=== PATIENT | female | born 1990 | race Caucasian/White ===

== ENCOUNTER 2018-02-21 11:42 | Emergency (ER) | payer SELFPAY ==
[2018-02-21] MEDS ORDERED: HYDROcodone/ACETAMIN 5-325 MG* 1 TAB PO ONE (12:09)
--- NOTE | 2018-02-21 12:14 | ED ---
Upper Extremity Pain - HPI Summary HPI Summary: Patient is a 27-year-old female who presents emergency department for a right wrist injury that occurred 30 minutes prior to arrival. Patient states she tripped outside and landed onto a right outstretched arm. No other injuries were sustained. Patient reports numbness to right upper extremity from elbow to fingertips. Symptoms are [id number] in severity. Moving and touching her makes symptoms worse. Nothing makes symptoms better.Again past medical history. - History of Current Complaint Chief Complaint: EDExtremityUpper Stated Complaint: RT WRIST INJURY Time Seen by Provider: 02/21/18 11:51 Hx Obtained From: Patient - Allergies/Home Medications Allergies/Adverse Reactions: Allergies Allergy/AdvReac Type Severity Reaction Status Date / Time codeine Allergy Severe Headache Verified 02/21/18 11:47 PMH/Surg Hx/FS Hx/Imm Hx Previously Healthy: Yes Infectious Disease History: No Infectious Disease History: Denies: Traveled Outside the [place] in Last 30 Days - Social History Occupation: Unemployed Lives: With Family Review of Systems Positive: Other - pain to right wrist Positive: Paresthesia All Other Systems Reviewed And Are Negative: Yes Physical Exam Triage Information Reviewed: Yes Vital Signs On Initial Exam: Initial Vitals Temp Pulse Resp BP Pulse Ox 99.4 F 130 18 124/79 100 02/21/18 11:44 02/21/18 11:44 02/21/18 11:44 02/21/18 11:44 02/21/18 11:44 Vital Signs Reviewed: Yes Appearance: Positive: Pain Distress - Patient sitting on bed, crying, nontoxic. Family present. Skin: Positive: Warm, Dry Head/Face: Positive: Normal Head/Face Inspection Eyes: Positive: Normal Musculoskeletal: Positive: Other - Significant pain to distal right forearm. Good palpable pedal pulses. Brisk capillary refill. No proximal elbow or shoulder pain. No wounds. Procedures - Splinting Hand-Made Type: orthoglass Splint: sugar-tong Pre-Proc Neuro Vasc Exam: normal Post-Proc Neuro Vasc Exam: normal Diagnostics - Vital Signs Vital Signs Temp Pulse Resp BP Pulse Ox 02/21/18 11:44 99.4 F 130 18 124/79 100 - Laboratory Lab Statement: Any lab studies that have been ordered have been reviewed, and results considered in the medical decision making process. Course/Dx - Course Assessment/Plan: Patient presenting to the ER for an isolated right wrist injury. Patient was given 2 Lortab given her significant pain. X-rays show a nondisplaced fracture of the distal radius, reading per myself and radiology. Sugar tong splint was placed. Pt. advised to call the orthopedic clinic on Friday for an appointment. Advised to ice and elevate. Pt. would like to take tylenol for pain. Was given return precautions. Pt. requested sling. - Diagnoses Provider Diagnoses: Radial fracture Discharge - Sign-Out/Discharge Documenting (check all that apply): Discharge/Admit/Transfer - Discharge Plan Condition: Good Disposition: HOME Patient Education Materials: Wrist Fracture in Adults (ED) Referrals: Remy Miguel MD [Medical Doctor] - No Primary Care Phys,NOPCP [Primary Care Provider] - Additional Instructions: Call Dr. Miguel' office on Friday morning for an appointment Keep splint in place Ice and elevate Tylenol for pain as directed Return to ER if symptoms change or worsen - Billing Disposition and Condition Condition: GOOD Disposition: HOME
--- NOTE | 2018-02-21 12:41 | RAD ---
INDICATION: RIGHT and hand wrist injury sustained in fall. Pain. COMPARISON: None. TECHNIQUE: AP, lateral, and oblique views RIGHT wrist. AP, lateral, and oblique views of the RIGHT hand. REPORT AND IMPRESSION: Nondisplaced transverse fracture through the distal metaphysis of the radius. No additional fracture about the wrist or hand. Normal articular alignment at the wrist and hand. Mild soft tissue swelling most prominent over the volar aspect of the wrist.
[2018-02-21 14:04] VITALS: BP 119/80
== END 2018-02-21 14:03 | disposition home or self-care (01) ==
LOC: ED 11:42
DX: S52.501A Unspecified fracture of the lower end of right radius, initial encounter for closed fracture (principal); W01.0XXA Fall on same level from slipping, tripping and stumbling without subsequent striking against object, initial encounter; Y93.9 Activity, unspecified; Y92.9 Unspecified place or not applicable; Z88.5 Allergy status to narcotic agent
CPT/HCPCS: 99282

== ENCOUNTER 2018-09-21 12:05 | Emergency (ER) | payer SELFPAY ==
[2018-09-21 12:13] VITALS: BP 117/70
--- NOTE | 2018-09-21 12:30 | UC ---
Respiratory Complaint HPI - HPI Summary HPI Summary: 28 yo female presents with a dry cough and nasal discharge since yesterday. She has not taken anything OTC. She is currently 32 weeks . Baby is active and she has had no issues this . She denies fever, chills, SOB, chest pain, abdominal pain, n/v, or vaginal bleeding. - History of Current Complaint Chief Complaint: UCRespiratory Stated Complaint: URI Time Seen by Provider: 09/21/18 12:29 Onset/Duration: Sudden Onset Severity Initially: Moderate Severity Currently: Moderate Pain Intensity: 7 Pain Scale Used: 0-10 Numeric Character: Cough: Nonproductive - Allergies/Home Medications Allergies/Adverse Reactions: Allergies Allergy/AdvReac Type Severity Reaction Status Date / Time codeine Allergy Severe Headache Verified 09/21/18 12:13 Home Medications: Home Medications NK [No Home Medications Reported] 09/21/18 [History Confirmed 09/21/18] PMH/Surg Hx/FS Hx/Imm Hx - Additional Past Medical History Additional PMH: None - Surgical History Surgical History: None Surgery Procedure, Year, and Place: c section x2 - Family History Known Family History: Positive: None - Social History Occupation: Employed Full-time Lives: With Family Alcohol Use: Rare Substance Use Type: None Smoking Status (MU): Heavy Every Day Tobacco Smoker Type: Cigarettes Review of Systems All Other Systems Reviewed And Are Negative: Yes Constitutional: Positive: Negative Skin: Positive: Negative Eyes: Positive: Negative ENT: Positive: Nasal Discharge Respiratory: Positive: Cough Cardiovascular: Positive: Negative Gastrointestinal: Positive: Negative Neurovascular: Positive: Negative Neurological: Positive: Negative Psychological: Positive: Negative Physical Exam - Summary Physical Exam Summary: GENERAL: NAD. WDWN. No pain distress. SKIN: No rashes, sores, lesions, or open wounds. HEENT: Head: AT/NC Eyes: EOM intact. Conjunctiva clear without inflammation or discharge. Ears: Hearing grossly normal. TMs intact, no bulging, erythema, or edema. Nose: Nasal mucosa pink and moist. NTTP maxillary and frontal sinus. Throat: Posterior oropharynx without exudates, erythema, or tonsillar enlargement. Uvula midline. NECK: Supple. Nontender. No lymphadenopathy. CHEST: CTAB. No r/r/w. No accessory muscle use. Breathing comfortably and in no distress. CV: RRR. Without m/r/g. Pulses intact. Cap refill <2seconds NEURO: Alert. PSYCH: Age appropriate behavior. Triage Information Reviewed: Yes Vital Signs: Initial Vital Signs Temp 98.3 F 09/21/18 12:09 Pulse 120 09/21/18 12:09 Resp 18 09/21/18 12:09 BP 117/70 09/21/18 12:09 Pulse Ox 100 09/21/18 12:09 Vital Signs Reviewed: Yes UC Diagnostic Evaluation - Laboratory O2 Sat by Pulse Oximetry: 100 Respiratory Course/Dx - Course Course Of Treatment: Her exam is WNL and she is afebrile at this time. I suspect she has a viral illness. She is doing a bit of coughing through the exam , unfortunately given her - options are limited for treatment. I am hesistant to precsribe any category C medications to her during her pregnany. Therefore, I advised her to please call her OBGYN to schedule a f/u appointment for a recheck and to ask if there is anything they are comfortable prescribing for her cough. - Differential Dx/Diagnosis Provider Diagnosis: Viral URI with cough Discharge - Sign-Out/Discharge Documenting (check all that apply): Patient Departure All imaging exams completed and their final reports reviewed: No Studies - Discharge Plan Condition: Stable Disposition: HOME Patient Education Materials: Viral Syndrome (ED), Acute Cough (ED) Forms: *Work Release Referrals: No Primary Care Phys,NOPCP [Primary Care Provider] - Additional Instructions: If you develop a fever, shortness of breath, chest pain, new or worsening symptoms - please call your PCP or go to the ED. I suspect your symptoms are viral and will improve with time and rest. 1) Please call your OBGYN to ask about cough medicines you may be able to take - Billing Disposition and Condition Condition: STABLE Disposition: Home
== END 2018-09-21 12:48 | disposition home or self-care (01) ==
LOC: UCEAST 12:05
DX: J02.9 Acute pharyngitis, unspecified (principal); R05 Cough; Z88.5 Allergy status to narcotic agent; F17.210 Nicotine dependence, cigarettes, uncomplicated
CPT/HCPCS: 99211; G0463

== ENCOUNTER 2018-09-23 00:07 | Emergency (ER) | payer SELFPAY ==
[2018-09-23] MEDS ORDERED: Albuterol 0.5% CONC NEB.SOL* 5 MG/ML 20 ml BOT INH ONE (00:37)
[2018-09-23] MEDS ORDERED: predniSONE TAB* 20 MG PO ONE (00:38)
--- NOTE | 2018-09-23 01:09 | ED ---
Complex/Multi-Sys Presentation - HPI Summary HPI Summary: A 28 y/o female accompanied by a friend presents to the ED c/o terrible cough for the couple days reaching 8/10 in severity. Additionally, she has been experiencing SOB and chest pain coupled with abdominal pain radiating to her back. As per triage, "Patient reports cough and congestion. Seen by Urgent Care for same 2 days ago. Patient is 32 weeks ". According to the patient, she has been experiencing a dry, non-productive cough for the past couple days. Her cough is so severe that she has to vomit. Additionally, she has been experiencing chest pain and SOB. She feels as if she is out of breath and like "an elephant is on her chest". She also noted that she has abdominal pain radiating to her back. She denies any fever or chills. Patient is 32-weeks . No PMHx of asthma. SHx of half-pack of cigarettes per day. - History Of Current Complaint Chief Complaint: EDGeneral Time Seen by Provider: 09/23/18 00:18 Hx Obtained From: Patient Onset/Duration: Sudden Onset, Lasting Days, Still Present, Worse Since Timing: Constant Severity Currently: Severe - 8/10 Location: Negative Aggravating Factor(s): NOTHING Alleviating Factor(s): NOTHING Associated Signs And Symptoms: Positive: SOB, Cough, Chest Pain, Vomiting, Back Pain. Negative: Fever - Allergies/Home Medications Allergies/Adverse Reactions: Allergies Allergy/AdvReac Type Severity Reaction Status Date / Time codeine Allergy Severe Headache Verified 09/21/18 12:13 PMH/Surg Hx/FS Hx/Imm Hx Endocrine/Hematology History: Denies: Hx Diabetes, Hx Thyroid Disease Cardiovascular History: Denies: Hx Hypertension Respiratory History: Denies: Hx Asthma, Hx Chronic Obstructive Pulmonary Disease (COPD) GI History: Denies: Hx Ulcer - Surgical History Surgery Procedure, Year, and Place: c section x2 Infectious Disease History: No Infectious Disease History: Denies: Hx Hepatitis, Hx Human Immunodeficiency Virus (HIV), Traveled Outside the [place] in Last 30 Days - Family History Known Family History: Negative: Hypertension - Social History Alcohol Use: Rare Substance Use Type: Reports: None Smoking Status (MU): Heavy Every Day Tobacco Smoker Type: Cigarettes Review of Systems Negative: Fever, Chills Positive: Chest Pain Positive: Shortness Of Breath, Cough Positive: Abdominal Pain, Vomiting Positive: Other - POSITIVE: BACK PAIN All Other Systems Reviewed And Are Negative: Yes Physical Exam - Summary Physical Exam Summary: Appearance: Well-appearing, Well-nourished, lying in bed comfortably Skin: Warm, dry, no obvious rash Eyes: sclera anicteric, no conjunctival pallor ENT: mucous membranes moist, pharynx appears normal Neck: Supple, nontender Respiratory: Appears to be in mild respiratory distress. Slightly labored breathing. Dekeptnic. Diminished breath sounds. Diffuse expiratory wheezing upon forced expiration. No signs of consolidation. Cardiovascular: Normal S1, S2. No murmurs. Normal distal pulses in tibial and radial bilaterally. Abdomen: Soft, nontender, normal active bowel sounds present Musculoskeletal: Normal, Strength/ROM Intact Neurological: A&Ox3, awake and alert, mentation is normal, speech is fluent and appropriate Psychiatric: affect is normal, does not appear anxious or depressed Triage Information Reviewed: Yes Vital Signs On Initial Exam: Initial Vitals Temp Pulse Resp BP Pulse Ox 98 F 124 22 127/81 99 09/23/18 00:10 09/23/18 00:10 09/23/18 00:10 09/23/18 00:10 09/23/18 00:10 Vital Signs Reviewed: Yes Diagnostics - Vital Signs Vital Signs Temp Pulse Resp BP Pulse Ox 09/23/18 00:10 98 F 124 22 127/81 99 - Laboratory Lab Statement: Any lab studies that have been ordered have been reviewed, and results considered in the medical decision making process. Re-Evaluation - Re-Evaluation First Eval Re-Evaluation Time: 01:20 Change: Improved Comment: PATIENT FEELS MUCH BETTER. Complex Multi-Symp Course/Dx Course Of Treatment: A 28 y/o female accompanied by a friend presents to the ED c/o terrible cough for the couple days reaching 8/10 in severity. Additionally, she has been experiencing SOB and chest pain coupled with abdominal pain radiating to her back. According to the patient, she has been experiencing a dry , non-productive cough for the past couple days. Her cough is so severe that she has to vomit. Additionally, she has been experiencing chest pain and SOB. She feels as if she is out of breath and like "an elephant is on her chest". She also noted that she has abdominal pain radiating to her back. She denies any fever or chills. Patient is 32-weeks . No PMHx of asthma. SHx of half-pack of cigarettes per day. Physical exam revealed appears to be in mild respiratory distress. Slightly labored breathing. Dekeptnic. Diminished breath sounds. Diffuse expiratory wheezing upon forced expiration. No signs of consolidation. No laboratory scans were done. No blood work was done. In the ED course, the patient received Albuterol and Deltasone. During reevaluation, the patient indicated that she was feeling better after treatment. Patient will be discharged with a diagnosis of Bronchiolitis. Patient is to follow up with PCP in 2-3 days. Patient is agreeable with this plan. - Diagnoses Provider Diagnoses: Bronchiolitis Discharge - Sign-Out/Discharge Documenting (check all that apply): Patient Departure - DISCHARGE - Discharge Plan Condition: Improved Disposition: HOME Prescriptions: Albuterol HFA INHALER* [Ventolin HFA Inhaler*] 2 puff INH Q4H PRN #1 mdi PRN Reason: Dyspnea predniSONE TAB* [Deltasone 20 MG TAB*] 40 mg PO DAILY 5 Days #10 tab Patient Education Materials: Bronchiolitis (ED) Forms: *Work Release Referrals: No Primary Care Phys,NOPCP [Primary Care Provider] - - Billing Disposition and Condition Condition: IMPROVED Disposition: Home - Attestation Statements Document Initiated by Thais: Yes Documenting Cristinaibe: Aleks Hardy Provider For Whom Thais is Documenting (Include Credential): MD Cristina Martinezibshiva Attestation: Aleks Spears scribed for Vahid Borrego MD on 09/23/18 at 0222. Scribe Documentation Reviewed: Yes Provider Attestation: The documentation as recorded by the Aleks antonio accurately reflects the service I personally performed and the decisions made by me, Vahid Borrego MD Status of Scribshiva Document: Viewed
[2018-09-23 01:30] VITALS: BP 129/91
== END 2018-09-23 01:29 | disposition home or self-care (01) ==
LOC: ED 00:07
DX: O26.893 Other specified pregnancy related conditions, third trimester (principal); J21.9 Acute bronchiolitis, unspecified; O99.333 Smoking (tobacco) complicating pregnancy, third trimester; Z3A.32 32 weeks gestation of pregnancy; Z88.5 Allergy status to narcotic agent
CPT/HCPCS: 99281; J7512

== ENCOUNTER 2018-09-29 21:22 | Emergency (ER) | payer SELFPAY ==
[2018-09-29 21:39] VITALS: BP 133/74
== END 2018-09-29 23:25 | disposition left against medical advice (07) ==
LOC: ED 21:22
DX: R07.81 Pleurodynia (principal); Z53.21 Procedure and treatment not carried out due to patient leaving prior to being seen by health care provider

== ENCOUNTER 2019-09-17 15:25 | Emergency (ER) | payer OTHER ==
--- NOTE | 2019-09-17 15:49 | ED ---
Abdominal Pain/Female - HPI Summary HPI Summary: 29 female presents to the ED by EMS with a chief complaint of abdominal pain starting after lunch time today. Patient was normal all morning. She ate a sandwich and then started having pain around her stomach that radiates to her back. Patient vomited 3 times this afternoon. Pt denies any fever, chills, erythema of eyes, sore throat, CP, SOB, cough, melena, dysuria, hematuria, myalgia, edema, rash, or dizziness. History of . Smokes tobacco. PMHx kidney infection. No Hx ulcer. Ended period today. - History of Current Complaint Stated Complaint: ABDOMINAL PAIN PER EMS Time Seen by Provider: 09/17/19 15:30 Hx Obtained From: Patient Onset/Duration: Sudden Onset, Lasting Hours Timing: Hours Severity Initially: Moderate Severity Currently: Moderate Location: Epigastric Radiates: Yes Radiates to: Back Character: Sharp Aggravating Factor(s): Food Alleviating Factor(s): Nothing Associated Signs and Symptoms: Positive: Nausea, Vomiting, Diarrhea Allergies/Adverse Reactions: Allergies Allergy/AdvReac Type Severity Reaction Status Date / Time codeine Allergy Severe Headache Verified 09/29/18 21:39 PMH/Surg Hx/FS Hx/Imm Hx Endocrine/Hematology History: Denies: Hx Diabetes, Hx Thyroid Disease Cardiovascular History: Denies: Hx Hypertension Respiratory History: Denies: Hx Asthma, Hx Chronic Obstructive Pulmonary Disease (COPD) GI History: Denies: Hx Ulcer Psychiatric History: Reports: Hx Depression - no medication - Surgical History Surgery Procedure, Year, and Place: c section x2 Infectious Disease History: Denies: Hx Hepatitis, Hx Human Immunodeficiency Virus (HIV) - Family History Known Family History: Positive: None Negative: Hypertension - Social History Alcohol Use: None Substance Use Type: Reports: None Smoking Status (MU): Heavy Every Day Tobacco Smoker Type: Cigarettes Review of Systems Negative: Fever, Chills Negative: Erythema Negative: Sore Throat Negative: Chest Pain Negative: Shortness Of Breath, Cough Positive: Abdominal Pain, Vomiting, Nausea Negative: dysuria, hematuria Negative: Myalgia, Edema Negative: Rash Neurological: Negative - neg - dizziness All Other Systems Reviewed And Are Negative: Yes Physical Exam - Summary Physical Exam Summary: Constitutional: Well-developed, Well-nourished, Alert. Mildly Distressed Skin: Warm, Dry HENT: Normocephalic; Atraumatic Eyes: Conjunctiva normal Neck: Musculoskeletal ROM normal neck. (-) JVD, (-) Stridor, (-) Tracheal deviation Cardio: Rhythm regular, rate normal, Heart sounds normal; Intact distal pulses; Radial pulses are 2+ and symmetric. (-) Murmur Pulmonary/Chest wall: Effort normal. (-) Respiratory distress, (-) Wheezes, (-) Rales Abd: Soft, (-) Distension, (-) Guarding, (-) Rebound. RLQ, Right CVA, and RUQ tenderness. Musculoskeletal: (-) Edema Lymph: (-) Cervical adenopathy Neuro: Alert, Oriented x3 Psych: Mood and affect Normal Triage Information Reviewed: Yes Vital Signs Reviewed: Yes Procedures - Sedation Patient Received Moderate/Deep Sedation with Procedure: No Diagnostics - Laboratory Result Diagrams: 09/17/19 16:48 09/17/19 16:48 Lab Statement: Any lab studies that have been ordered have been reviewed, and results considered in the medical decision making process. - Radiology CXR Radiology Interpretation Completed By: Radiologist Summary of Radiographic Findings: 1. NO EVIDENCE FOR ACTIVE CARDIOPULMONARY DISEASE. 2. NO FREE INTRAPERITONEAL AIR IS SEEN. THE STOMACH IS DILATED WITH AN AIR-FLUID LEVEL. An ED physician has reviewed this report. - Ultrasound Transvaginal US Ultrasound Interpretation Completed By: Radiologist Summary of Ultrasound Findings: Tansvaginal exam returned negative for ovarian torsion. An ED physician has reviewed this report. Re-Evaluation - Re-Evaluation First Eval Re-Evaluation Time: 18:00 Change: Improved Comment: She is more comfortable. Pain is localized to just the RUQ. Abdominal Pain Fem Course/Dx - Course Course Of Treatment: 29 female presents to the ED by EMS with a chief complaint of abdominal pain starting after lunch time today. Patient was normal all morning. She ate a sandwich and then started having pain around her stomach that radiates to her back. Patient vomited 3 times this afternoon. Pt denies any fever, chills, erythema of eyes, sore throat, CP, SOB, cough, melena, dysuria, hematuria, myalgia, edema, rash, or dizziness. History of . Smokes tobacco. PMHx kidney infection. No Hx ulcer. Ended period today. Upon physical exam, patient has RLQ, right CVA, and RUQ tenderness. Mild distress while lying flat on stretcher. Chest XR shows: 1. NO EVIDENCE FOR ACTIVE CARDIOPULMONARY DISEASE. 2. NO FREE INTRAPERITONEAL AIR IS SEEN. THE STOMACH IS DILATED WITH AN AIR-FLUID LEVEL. Tansvaginal exam returned negative for ovarian torsion. Lab results show: RBC 3.63, HGB 10.8, HCT 32, Potassium 3.3, BUN/creatinine ratio 7.5, glucose 126, and AST 84. Diagnosis is abdominal pain. Patient is a signout to Dr. Darling at change of shifts at 1900, pending US and CT ABD/PEL results. - Diagnoses Provider Diagnoses: Abdominal pain Discharge ED - Sign-Out/Discharge Documenting (check all that apply): Sign-Out Patient Signing out patient TO: Bianca Darling - Signout at change of shifts to Dr. Darling at 1900 on 09/17/19. - Discharge Plan Condition: Stable Referrals: No Primary Care Phys,NOPCP [Medical Doctor] - - Attestation Statements Document Initiated by Scribe: Yes Documenting Scribe: José Miguel Henry Provider For Whom Scribe is Documenting (Include Credential): Wil Ta MD Scribe Attestation: I, José Miguel Templeton and Ten Henry, scribed for Wil Ta MD on at 2005.
[2019-09-17] MEDS ORDERED: NS 0.9% 1000 ML** 1,000 ML IV ONE (15:50)
[2019-09-17] MEDS ORDERED: Morphine 4 MG/ML VIAL (1 ml) 4 MG/ML VIAL IV ONE (15:51)
[2019-09-17] MEDS ORDERED: Ondansetron INJ* 2 MG/ML VIAL IV ONE (15:51)
[2019-09-17 16:34] LABS: Urine Appearance Clear; Urine Bilirubin Negative (Negative); Urine Blood Negative (Negative); Urine Color Yellow; Urine Glucose Negative (Negative); Urine Ketones Negative (Negative); Urine Nitrite Negative (Negative); Urine Protein Negative (Negative); Urine Specific Gravity 1.015 (1.010-1.030); Urine Urobilinogen Negative (Negative)
[2019-09-17 17:04] LABS: ABS Lymphocytes 1.2 10^3/ul (1.0-4.8); ABS Monocytes 0.5 10^3/ul (0-0.8); ABS Neutrophils 7.5 10^3/ul (1.5-7.7); Eosinophil % 0.3 %; Hematocrit 32 % (35-47); Hemoglobin 10.8 g/dL (12.0-16.0); Lymphocyte % 12.5 %; Mean Corpuscular HGB Conc 34 g/dL (31-36); Mean Corpuscular Hemoglobin 30 pg (27-31); Mean Corpuscular Volume 88 fL (80-97); Mean Platelet Volume 9.2 fL (7.4-10.4); Platelet Count 212 10^3/uL (150-450); Red Blood Count 3.63 10^6 /uL (3.70-4.87); Red Cell Distribution Width 16 % (10-15); White Blood Count 9.2 10^3/uL (3.5-10.8)
[2019-09-17 17:23] LABS: ALT 40 U/L (7-52); AST 84 U/L (13-39); Albumin 4.2 g/dL (3.2-5.2); Albumin/Globulin Ratio 1.9 (1-3); Alkaline Phosphatase 45 U/L (34-104); Anion Gap 5 mmol/L (2-11); BUN/Creatinine Ratio 7.5 (8-20); Blood Urea Nitrogen 6 mg/dL (6-24); C Reactive Protein 1.54 mg/L (<8.01); CO2 Carbon Dioxide 25 mmol/L (22-32); Calcium 8.8 mg/dL (8.6-10.3); Chloride 111 mmol/L (101-111); EGFR African American 104.1 (>60); Globulin 2.2 g/dL (2-4); Glucose 126 mg/dL (70-100); Potassium 3.3 mmol/L (3.5-5.0); Sodium 141 mmol/L (135-145); Total Protein 6.4 g/dL (6.4-8.9)
[2019-09-17 17:29] LABS: HCG Pregnancy < 0.60 mIU/mL
[2019-09-17] MEDS ORDERED: Iohexol 300* (CONTRAST) 10 ML SDV IV ONE (18:19)
--- NOTE | 2019-09-17 19:29 | ED ---
Progress - Progress Note Progress Note: Patient is received as a sign-out from Dr. Ta to Dr. Darling at [address] ABD/PEL and Gallbladder US. CT ABD/PEL IMPRESSION: 1. CT findings suggestive of cholecystitis. 2. No CT findings of appendicitis. THIS REPORT WAS REVIEWED BY DR. DARLING GALLBLADDER US IMPRESSION: Cholelithiasis with ultrasound findings of cholecystitis. THIS REPORT WAS REVIEWED BY DR. DARLING 2023 - Patient's case was discussed with Dr. Cobb, surgery. Zosyn to be given, Dr. Cobb will come to ED to evaluate. 2129 - Patient wants to leave AMA. Extensive discussion was held with patient regarding the risks of AMA, including significant disability and possibly . The patient understands these risks but still wishes to leave AMA. She is alert and oriented x3. Patient signed AMA papers and left ED. - EKG/XRAY/CT CT: see above Re-Evaluation - Re-Evaluation First Eval Re-Evaluation Time: 20:32 Comment: Imaging was discussed with the patient. Pending surgery evaluation. Second Eval Re-Evaluation Time: 21:30 Comment: 2129 - Patient wants to leave AMA. Extensive discussion was held with patient regarding the risks of AMA, including significant disability and possibly . The patient understands these risks but still wishes to leave AMA. She is alert and oriented x3. Patient signed AMA papers and left ED. Course/Dx - Course Course Of Treatment: During ED course, patient received piperacillin sod/ tazobactam sod 3.375 gm in sodium chloride, 100 mls @ 200 mls/hr IVPB. - Diagnoses Provider Diagnoses: Acute cholecystitis - Provider Notifications Discussed Care Of Patient With: Sharri Cobb Time Discussed With Above Provider: 20:24 Instructed by Provider To: Other - Patient's case was discussed with Dr. Cobb, patient will be started on Zosyn and Dr. Cobb will come to ED to evaluate the patient. Discharge ED - Sign-Out/Discharge Documenting (check all that apply): Patient Departure - AMA - Discharge Plan Condition: Fair Disposition: AGAINST MEDICAL ADVICE Patient Education Materials: Cholecystitis (ED) Referrals: No Primary Care Phys,NOPCP [Medical Doctor] - Additional Instructions: rest - Billing Disposition and Condition Condition: FAIR Disposition: Against Medical Advice - Attestation Statements Document Initiated by Scribe: Yes Documenting Scribe: DENISE FLORIAN Provider For Whom Scribe is Documenting (Include Credential): KEVON DARLING MD Scribe Attestation: I, DENISE FLORIAN, scribed for KEVON DARLING MD on 09/18/19 at 0207. Scribe Documentation Reviewed: Yes Provider Attestation: The documentation as recorded by the ariannaibDNEISE shannon accurately reflects the service I personally performed and the decisions made by me, KEVON DARLING MD Status of Scribe Document: Viewed
[2019-09-17] MEDS ORDERED: Piperacillin/Tazobac ADVAN(*) 3.375 GM in NS 0.9% 100 ML* 100 ML IVPB ONE (20:25)
[2019-09-17] MEDS ORDERED: Albuterol HFA INHALER* 8 gm MDI INH PRN (21:33)
[2019-09-17 21:57] VITALS: BP 120/80
== END 2019-09-17 22:02 | disposition left against medical advice (07) ==
LOC: ED 15:25
DX: K81.0 Acute cholecystitis (principal); F17.210 Nicotine dependence, cigarettes, uncomplicated; Z88.5 Allergy status to narcotic agent
CPT/HCPCS: 36415; 71045; 74177; 76705; 76830; 80053; 81003; 83605; 83690; 84702; 85025; 86140; 96361; 96365; 96375; 99283; J2270; J2405; J2543; Q9967

== ENCOUNTER 2019-09-19 09:42 | Observation (INO) | payer OTHER ==
[2019-09-19] MEDS ORDERED: NS 0.9% 1000 ML** 1,000 ML IV ONE (10:32)
[2019-09-19] MEDS ORDERED: Ketorolac INJ* 30 MG/ML 1 ML VIAL IV ONE (10:32)
--- NOTE | 2019-09-19 10:38 | ED ---
Abdominal Pain/Female - HPI Summary HPI Summary: Pt is a 29 y/o F presenting to the ED with a chief complaint of RUQ abd pain. She came to the ED a couple of days ago where she was told she needed to consult with the surgeon, but she left AMA. The pain initially came on the other day after she ate a sandwich, and it subsided for a while after she left but returned this morning. She states it comes on all over her abd but mostly in her RUQ. She is unsure if shes had a fever, but reports chills, nausea, one episode of emesis, and diarrhea. She denies dysuria and hematuria. - History of Current Complaint Chief Complaint: EDAbdPain Stated Complaint: ABD PAIN PER PT Time Seen by Provider: 09/19/19 10:24 Hx Obtained From: Patient Onset/Duration: Sudden Onset, Lasting Days, Still Present Timing: Days Severity Initially: Moderate Severity Currently: Moderate Pain Intensity: 6 Pain Scale Used: 0-10 Numeric Location: Discrete At: RUQ, Epigastric Aggravating Factor(s): Nothing Alleviating Factor(s): Nothing Associated Signs and Symptoms: Positive: Nausea, Vomiting, Diarrhea. Negative: Fever, Urinary Symptoms Allergies/Adverse Reactions: Allergies Allergy/AdvReac Type Severity Reaction Status Date / Time codeine Allergy Severe Headache Verified 09/19/19 09:49 Home Medications: Home Medications Citalopram TAB* [Celexa TAB*] 20 mg PO DAILY 09/19/19 [History Confirmed ] PMH/Surg Hx/FS Hx/Imm Hx Previously Healthy: Yes Endocrine/Hematology History: Denies: Hx Diabetes, Hx Thyroid Disease Cardiovascular History: Denies: Hx Hypertension Respiratory History: Denies: Hx Asthma, Hx Chronic Obstructive Pulmonary Disease (COPD) GI History: Denies: Hx Ulcer Psychiatric History: Reports: Hx Depression - no medication - Surgical History Surgery Procedure, Year, and Place: c section x2 Infectious Disease History: No Infectious Disease History: Denies: Hx Hepatitis, Hx Human Immunodeficiency Virus (HIV), Traveled Outside the [place] in Last 30 Days - Family History Known Family History: Negative: Hypertension - Social History Alcohol Use: None Hx Substance Use: No Substance Use Type: Reports: None Hx Tobacco Use: Yes Smoking Status (MU): Heavy Every Day Tobacco Smoker Type: Cigarettes Review of Systems Positive: Chills. Negative: Fever Positive: Abdominal Pain, Vomiting, Diarrhea, Nausea Negative: dysuria, hematuria All Other Systems Reviewed And Are Negative: Yes Physical Exam - Summary Physical Exam Summary: Constitutional: Well-developed, Well-nourished, Alert. (-) Distressed Skin: Warm, Dry HENT: Normocephalic; Atraumatic Eyes: Conjunctiva normal Neck: Musculoskeletal ROM normal neck. (-) JVD, (-) Stridor, (-) Tracheal deviation Cardio: Rhythm regular, rate normal, Heart sounds normal; Intact distal pulses; Radial pulses are 2+ and symmetric. (-) Murmur Pulmonary/Chest wall: Effort normal. (-) Respiratory distress, (-) Wheezes, (-) Rales Abd: Mid-epigastric and RUQ tenderness, positive Sycamore sign, (-) Distension, (-) Guarding, (-) Rebound Musculoskeletal: (-) Edema Lymph: (-) Cervical adenopathy Neuro: Alert, Oriented x3 Psych: Mood and affect Normal Triage Information Reviewed: Yes Vital Signs On Initial Exam: Initial Vitals Temp Pulse Resp BP Pulse Ox 98.1 F 69 16 154/96 100 09/19/19 09:46 09/19/19 09:46 09/19/19 09:46 09/19/19 09:46 09/19/19 09:46 Vital Signs Reviewed: Yes Procedures - Sedation Patient Received Moderate/Deep Sedation with Procedure: No Diagnostics - Vital Signs Vital Signs Temp Pulse Resp BP Pulse Ox 09/19/19 09:46 98.1 F 69 16 154/96 100 - Laboratory Result Diagrams: 09/19/19 10:38 09/19/19 10:38 Lab Statement: Any lab studies that have been ordered have been reviewed, and results considered in the medical decision making process. - Ultrasound Gallbladder US Ultrasound Interpretation Completed By: Radiologist Summary of Ultrasound Findings: Gallstones with gallbladder wall thickening and pericholecystic fluid. ED physician has reviewed this report. Abdominal Pain Fem Course/Dx - Course Course Of Treatment: Patient is here with pain in her right upper quadrant. Patient was evaluated on Friday night where she was diagnosed with cholecystitis. Patient left AMA after receiving a dose of IV Zosyn. Patient returns today with continued abdominal pain. Patient had repeat ultrasound showed pericholecystic fluid, thickened gallbladder wall consistent with cholecystitis. Patient was given IV Zosyn by myself. Patient is admitted to the hospital by the surgery team. - Diagnoses Provider Diagnoses: Acute cholecystitis Discharge ED - Sign-Out/Discharge Documenting (check all that apply): Patient Departure - Discharge Plan Condition: Stable Disposition: ADMITTED TO [facility] - Billing Disposition and Condition Condition: STABLE Disposition: Admitted to [facility] - Attestation Statements Document Initiated by Thais: Yes Documenting Scribe: Vijaya Agee Provider For Whom Thais is Documenting (Include Credential): Tremaine Cuevas MD. Scribe Attestation: Vijaya Spears, scribed for Tremaine Cuevas MD. on 09/19/19 at 1737. Scribe Documentation Reviewed: Yes Provider Attestation: The documentation as recorded by the Vijaya antonio accurately reflects the service I personally performed and the decisions made by me, Tremaine Cuevas MD. Status of Scribe Document: Viewed Consult Consult: 1877 - I spoke with Dr. Cobb who will be coming to see the pt in the ED. 3063 - Dr. Cobb will take the pt to the OR.
[2019-09-19 10:46] LABS: ABS Monocytes 0.3 10^3/ul (0-0.8); ABS Neutrophils 1.9 10^3/ul (1.5-7.7); Hematocrit 31 % (35-47); Hemoglobin 10.2 g/dL (12.0-16.0); Lymphocyte % 46.2 %; Mean Corpuscular HGB Conc 33 g/dL (31-36); Mean Corpuscular Hemoglobin 29 pg (27-31); Mean Corpuscular Volume 89 fL (80-97); Mean Platelet Volume 9.2 fL (7.4-10.4); Platelet Count 211 10^3/uL (150-450); Red Cell Distribution Width 16 % (10-15); White Blood Count 4.2 10^3/uL (3.5-10.8)
[2019-09-19 11:01] LABS: Albumin 3.9 g/dL (3.2-5.2); Anion Gap 4 mmol/L (2-11); CO2 Carbon Dioxide 24 mmol/L (22-32); Calcium 8.7 mg/dL (8.6-10.3); Chloride 109 mmol/L (101-111); Potassium 3.2 mmol/L (3.5-5.0); Sodium 137 mmol/L (135-145)
[2019-09-19 11:07] LABS: ALT 88 U/L (7-52); AST 64 U/L (13-39); Albumin/Globulin Ratio 1.9 (1-3); Alkaline Phosphatase 47 U/L (34-104); BUN/Creatinine Ratio 4.9 (8-20); Blood Urea Nitrogen 4 mg/dL (6-24); EGFR African American 101.2 (>60); EGFR Non-African American 83.6 (>60); Globulin 2.1 g/dL (2-4); Glucose 111 mg/dL (70-100)
[2019-09-19 11:13] LABS: HCG Pregnancy < 0.60 mIU/mL
[2019-09-19] MEDS ORDERED: Piperacillin/Tazobac ADVAN(*) 3.375 GM in NS 0.9% 100 ML* 100 ML IVPB ONE (11:32)
[2019-09-19] MEDS ORDERED: Morphine 4 MG/ML VIAL (1 ml) 4 MG/ML VIAL IV ONE (11:35)
[2019-09-19] MEDS ORDERED: Docusate CAP* 100 MG PO PRN (13:11)
[2019-09-19] MEDS ORDERED: oxyCODONE/Acetamin 5/325 MG* TAB PO PRN (13:11)
[2019-09-19] MEDS ORDERED: Acetaminophen TAB* 325 MG PO PRN (13:11)
[2019-09-19] MEDS ORDERED: Potassium Chlor TAB* 20 MEQ TAB.ER PO ONE (13:19)
[2019-09-19] MEDS: Nicotine PATCH 7 MG/24 HR* PATCH TRANSDERM SCH (13:34)
--- NOTE | 2019-09-19 14:42 | HP ---
H&P (Free Text) History and Physical: DATE OF ADMISSION: 09/19/19 REASON FOR ADMISSION: Acute cholecystitis HPI: Ms Cabrera is a 29 year old woman previously healthy who presented to the ED with abdominal pain. On 09/17, she started having abdominal discomfort after eating a bologna and cheese sandwich. The pain started to worsen to the point where she couldn't stand or move. She also had nausea, vomiting, and diarrhea. She actually came to the ED that evening where CT scan was remarkable for pericholecystic fluid and wall enchancement. US showed thickened gallbladder wall at 5 mm and pericholecystic fluid. Her WBC was normal. She left AMA at that time before evaluation by surgery. She reports that she had abdominal pain yesterday but it was tolerable. She was tolerating a regular diet. This morning at about 6 AM she had worsening pain and returned to the ED. She reports subjective fevers on 09/17, but denies fevers/chills since then. PAST MEDICAL HISTORY: None PAST SURGICAL HISTORY: C sections x3. MEDICATIONS: None ALLERGIES: codeine Allergy (Severe, Verified 09/19/19 09:49) Headache FAMILY HISTORY: Mother and sister are healthy. Her father from liver failure 2/2 alcohol in the early . SOCIAL HISTORY: Patient lives with her 3 kids. She works department mgr in housekeeping. She smokes about 1/3 ppd since age 19. Denies alcohol or recreational drug use. ROS: A 14-point review of systems was obtained and pertinent findings are in HPI. PHYSICAL EXAM: Temp Pulse Resp BP Pulse Ox 97.4 F 57 20 114/76 100 09/19/19 14:41 09/19/19 14:41 09/19/19 14:41 09/19/19 14:41 09/19/19 14:41 General: No acute distress. Lying comfortable in bed. Head: Normocephalic and atraumatic Eyes: EOMI Mouth: Moist mucous membranes Neck: Trachea midline CV: Regular rate and rhythm, mild bradycardia in 50s. Chest: Clear to auscultation bilaterally Abdomen: Soft, nondistended. Tender to palpation in RUQ. No rebound or guarding. Skin: Intact, no lesions or rash Extremities: Warm, no pedal edema. Neuro: Alert and oriented x3 Laboratory Results - last 24 hr 09/19/19 09/19/19 10:38 10:38 WBC 4.2 RBC 3.50 L Hgb 10.2 L Hct 31 L MCV 89 MCH 29 MCHC 33 RDW 16 H Plt Count 211 MPV 9.2 Neut % (Auto) 44.9 Lymph % (Auto) 46.2 Ward % (Auto) 7.2 Eos % (Auto) 1.0 Baso % (Auto) 0.7 Absolute Neuts (auto) 1.9 Absolute Lymphs (auto) 2.0 Absolute Monos (auto) 0.3 Absolute Eos (auto) 0.0 Absolute Basos (auto) 0.0 Absolute Nucleated RBC 0.0 Nucleated RBC % 0.0 Sodium 137 Potassium 3.2 L Chloride 109 Carbon Dioxide 24 Anion Gap 4 BUN 4 L Creatinine 0.82 Est GFR ( Amer) 101.2 Est GFR (Non-Af Amer) 83.6 BUN/Creatinine Ratio 4.9 L Glucose 111 H Calcium 8.7 Total Bilirubin 0.40 AST 64 H ALT 88 H Alkaline Phosphatase 47 Total Protein 6.0 L Albumin 3.9 Globulin 2.1 Albumin/Globulin Ratio 1.9 Lipase 14 Beta HCG, Quant < 0.60 Diagnostics Summary of Ultrasound Findings Gallstones with gallbladder wall thickening and [Gallbladder US] pericholecystic fluid. ED physician has reviewed this report. ASSESSMENT AND PLAN: 29F with acute cholecystitis. -Will admit patient and plan for laparoscopic cholecystectomy tomorrow 09/20. -Received 1 dose of Zosyn in ED. Will continue Zosyn. -Pain control: Percocet prn, morphine prn -Will order low fat diet for today and NPO at midnight. -Tobacco use: nicotine patch, counseled on smoking cessation.
[2019-09-19] MEDS ORDERED: Piperacillin/Tazobactam VIAL*) 3.375 GM in NS 0.9% 100 ML* 100 ML IVPB SCH (16:00)
[2019-09-19] MEDS: ZOSYN 3.375 GM Q6H - Intermittant 30 min Infusion IVPB SCH ×4 (16:19→21:33)
[2019-09-19] MEDS: Morphine INJ* 2 MG/ML 1 ML SYRINGE (TWO MG - NEW SYRINGE VERSION) IV PRN ×2 (17:24→22:18)
[2019-09-19] MEDS: NS 0.9% 1000 ML** 1,000 ML IV SCH (23:52)
[2019-09-19] MEDS ORDERED: Lactated Ringers 1000 ML Bag* 1,000 ML IV SCH (23:59)
[2019-09-20] MEDS ORDERED: Nicotine Patch Removal NOTE PATCH OFF SCH (00:30)
[2019-09-20] MEDS: ZOSYN 3.375 GM Q6H - Intermittant 30 min Infusion IVPB SCH ×4 (03:59→09:59)
[2019-09-20] MEDS: Nicotine PATCH 7 MG/24 HR* PATCH TRANSDERM SCH (09:07)
[2019-09-20] MEDS: Morphine INJ* 2 MG/ML 1 ML SYRINGE (TWO MG - NEW SYRINGE VERSION) IV PRN (09:08)
--- NOTE | 2019-09-20 09:27 | PN ---
Progress Note - Progress Note Date of Service: 09/20/19 Note: C/o abdominal pain in epigastrium and RUQ. Also nauseous overnight, no vomiting. Has been out of bed to bathroom. Denies chest pain or shortness of breath. Temp Pulse Resp BP Pulse Ox 98.1 F 62 18 105/64 99 09/20/19 07:28 09/20/19 07:28 09/20/19 09:08 09/20/19 07:28 09/20/19 07:28 General: No acute distress. CV: Regular rate and rhythm Chest: Clear to auscultation Abdomen: soft, nondistended, tender to palpation in RUQ Extremities: warm, no pedal edema. Neuro: Alert, oriented x3 A&P 29F with acute cholecystitis. -OR today for lap cholecystectomy. -Zosyn -Morphine prn, Zofran prn.
[2019-09-20] MEDS: NS 0.9% 1000 ML** 1,000 ML IV SCH (14:14)
[2019-09-20] MEDS: Ondansetron INJ* 2 MG/ML VIAL IV PRN ×2 (14:18→18:54)
[2019-09-20] MEDS ORDERED: Bupivacaine 0.25% SDV PF* 10 ML VIAL INJ ONE (15:18)
[2019-09-20] MEDS ORDERED: Bupivacaine 0.25% EPI 200,000* 30 ML SDV ONE (15:18)
[2019-09-20] MEDS ORDERED: Buffered Lidocaine 1% SYRIN* 1 ML/SYRINGE INTRADERM ONE (15:20)
[2019-09-20] MEDS ORDERED: DiMENhydriNATE IV* 50 MG/ML VIAL IV PUSH ONE (15:20)
[2019-09-20] MEDS ORDERED: Famotidine IV* 10 MG/ML 2 ML (20 mg) IV ONE (15:20)
[2019-09-20] MEDS ORDERED: Famotidine IV* 10 MG/ML 2 ML (20 mg) ONE (15:22)
[2019-09-20] MEDS ORDERED: DiMENhydriNATE IV* 50 MG/ML VIAL ONE (15:22)
[2019-09-20] MEDS ORDERED: Lidocaine 2% PF * 5 ML VIAL ONE (15:40)
[2019-09-20] MEDS ORDERED: Ondansetron INJ* 2 MG/ML VIAL ONE ×2 (15:40→18:52)
[2019-09-20] MEDS ORDERED: Dexamethasone IV* 4 MG/ML 1 ML (4 MG) ONE (15:40)
[2019-09-20] MEDS ORDERED: Midazolam* 1 MG/ML 5 ML VIAL (5 MG) ONE (15:40)
[2019-09-20] MEDS ORDERED: fentaNYL* 50 MCG/ML 2 ML VIAL (100 MCG VIAL) ONE (15:40)
[2019-09-20] MEDS ORDERED: Propofol* 10 MG/ML 20 ML BTL ONE (15:40)
[2019-09-20] MEDS ORDERED: Cisatracurium* 2 MG/ML MDV 5 ML ONE (15:40)
[2019-09-20] MEDS ORDERED: Ketorolac INJ* 30 MG/ML 1 ML VIAL ONE (15:41)
[2019-09-20] MEDS ORDERED: fentaNYL* 50 MCG/ML 2 ML VIAL (100 MCG VIAL) IV PRN (16:31)
[2019-09-20] MEDS ORDERED: Naloxone* 0.4 MG/ML 1 ML VIAL IV PRN (16:31)
[2019-09-20] MEDS ORDERED: PROCHLORPERAZINE INJ 5 MG/ML 2 ML VIAL IV PRN (16:31)
[2019-09-20] MEDS ORDERED: Neostigmine Methylsulfate* 1 MG/ML 10 ML VIAL (1 mg/ml) ONE (17:01)
[2019-09-20] MEDS ORDERED: Glycopyrrolate IV* 0.2 MG/ML 1 ML VIAL ONE (17:01)
--- NOTE | 2019-09-20 17:32 | BRIEFOPN ---
Brief Operative/Procedure Note - Operation Details Pre-Op Diagnosis: Acute cholecystitis Post-Op Diagnosis: Same Procedures: Laparoscopic cholecystectomy Surgeon(s)/Proceduralists: Sharri Cobb MD. Jony Jasso MD Anesthesia: General Estimated Blood Loss: Minimal Findings: Inflamed and distended gallbladder Specimen(s)/Culture(s) Description: Gallbladder Complications: None
[2019-09-20] MEDS ORDERED: oxyCODONE/Acetamin 5/325 MG* TAB PO ONE (18:49)
[2019-09-20] MEDS ORDERED: oxyCODONE/Acetamin 5/325 MG* TAB ONE (18:52)
[2019-09-20 19:54] VITALS: BP 122/85
--- NOTE | 2019-09-22 10:31 | OP ---
DATE OF OPERATION: 09/20/19 - room #340 DATE OF : 89 SURGEON: Sharri Cobb MD PHOTOCOMPOSING MACHINE OPERATOR: Tommie Jasso MD ANESTHESIA: General. PRE-OP DIAGNOSIS: Acute cholecystitis. POST-OP DIAGNOSIS: Acute cholecystitis. OPERATIVE PROCEDURE: Laparoscopic cholecystectomy. ESTIMATED BLOOD LOSS: Minimal. INDICATIONS: Graciela Cabrera is a 29-year-old woman otherwise healthy who presented to the ED on 09/17/19 with abdominal pain and nausea. It appeared that she had acute cholecystitis at that time, but she decided to leave AMA from the ED before surgical consult. She returned on 09/19/19 to the ED with similar symptoms. Her white count was normal, but ultrasound showed a thickened gallbladder wall and stones with pericholecystic fluid. I discussed the risks of surgery including, but not limited to, bleeding, infection, bowel injury, and bile duct injury. She agreed to proceed with laparoscopic cholecystectomy. FINDINGS: Inflamed gallbladder with edematous wall. DESCRIPTION OF PROCEDURE: The patient was brought to the OR and placed in the supine position on the OR table. She received Zosyn on the floor and received 1 dose in the operating room. General anesthesia was administered. The abdomen was prepped and draped in the usual sterile fashion. A time-out confirming the patient's name, date of , and procedure was called. An infraumbilical curvilinear incision was made. The incision was taken down to the fascia with blunt and sharp dissection. Two Barbi clamps were used to elevate the fascia. The fascia was incised sharply. The peritoneum was opened carefully with Metzenbaum scissors. A 12 mm trocar was placed through the incision. Pneumoperitoneum to 15 mmHg was achieved. Next, a 5 mm trocar was placed in the epigastrium at the midline under direct visualization. Another 5 mm trocar was placed in the right upper quadrant. The last 5 mm trocar was placed also in the right upper quadrant at the midclavicular line. There was small amount of serosanguineous fluid in the right upper quadrant that was likely from the inflammatory process. The gallbladder was elevated. Electrocautery was used to score the peritoneum overlying the gallbladder. The peritoneum was bluntly dissected away from the body of the gallbladder and the cystic duct and the cystic artery. The duct could be seen coming from the gallbladder, and the critical view was identified. The cystic duct was clipped with two clips proximal and one clip distal. The duct was divided sharply. The cystic artery was clipped with two clips proximal and one clip distal and also divided sharply. The gallbladder was then taken off the liver bed. The wall was very edematous and the gallbladder was very distended. However, the gallbladder did remain intact. Once the gallbladder was taken off the liver bed using electrocautery, the specimen was placed in an EndoCatch bag. The gallbladder was removed and passed off the field. It was sent to Pathology. The liver bed was examined and there was good hemostasis. The clips were examined and were in good position. The trocars were removed under direct visualization. The fascia at the umbilical site was closed with 0 Vicryl. All trocar sites were closed with interrupted 4-0 Monocryl sutures. The incisions were injected with 0.25% Marcaine. Steri-Strips were placed over the incision. Needle and sponge counts were correct. The patient was extubated and brought to recovery in stable condition. [id number]/[facility] #: [id number] [facility] CENTERGordon
--- NOTE | 2019-09-24 15:46 | DS ---
ADMIT DATE: 09/19/19 DISCHARGE DATE: 09/20/19 REASON FOR ADMISSION: Acute cholecystitis DISCHARGE DIAGNOSIS: Acute cholecystitis PHYSICAL FINDINGS: Abdominal tenderness in RUQ. Post-operatively, incisions with steri-strips. CONDITION AT DISCHARGE: Stable PROCEDURE: Laparoscopic cholecystectomy HOSPITAL COURSE: Graciela Cabrera is a previously healthy 29 year-old woman who was first seen on in the ED for abdominal pain, nausea, vomiting. She was diagnosed with acute cholecystitis. She left AMA before surgical consult. She returned to the ED on 09/19 for similar symptoms. Ultrasound and physical exam again suggested acute cholecystitis. She was admitted to the surgical service and started on Zosyn. She was brought to the OR on 09/20 for laparoscopic cholecystectomy. She recovered in the PACU and was discharged to home once she met discharge criteria. DISPOSITION: Home DISCHARGE INSTRUCTIONS FOLLOWING LAPAROSCOPIC CHOLECYSTECTOMY (REMOVAL OF GALL BLADDER) OFFICE VISIT: Call the office at [phone] for an appointment as soon as possible after discharge. You should be seen in the office in 1 week. DIET: During the first few weeks after surgery, it is advisable to avoid fried and fatty foods. Dairy products may also cause you some discomfort. Be patient and give your digestive system time to adjust. Eat a light diet. You may find that smaller, more frequent meals may be more helpful. WOUND CARE: * Shower daily. Wash over incision with regular soap and water. * Leave the skin tapes (steri-strips) on until they begin to loosen and curl on the ends. Then you may gently ease the tapes off, starting at both ends and working toward the incision. As the surgical wound heals, there is likely to be slight swelling, redness, or bruising of the skin. A few days later, the incision may feel lumpy. All of these are normal, and all of them will disappear in time. PLEASE CALL THE OFFICE SOON POSSIBLE IF ANY OF THE FOLLOWING OCCUR: * Sharp increase in pain, redness or swelling of the incision. * Presence of any wound drainage: yellow fluid, bright red blood, or pus (cream- colored drainage). * Fever over 101 degrees orally. ACTIVITY: * Gradually increase activity within your tolerance. * Walking is the best exercise for you at this time. * Climbing stairs is fine, but go slowly at first. * Do not lift anything heavier than 10 pounds for 1 weeks. This is an estimation ; therefore, use your judgment. * Do not drive a car until all of your pain is gone and your energy level is normal. LAPAROSCOPIC DISCOMFORT: You may experience some discomfort in your shoulders, chest or back for a few days. This is a common occurrence and is harmless. This discomfort is caused by carbon dioxide used to inflate the abdomen. The discomfort will disappear when the gas is absorbed by the body. PAIN MEDICATION CAUTION: Your pain medicine may contain a narcotic (i.e. Codeine ). This can cause drowsiness and constipation. Do not drink alcohol, drive a car or work around machines while taking the medicine. Drink plenty of liquids to help prevent constipation. You may use Milk of Magnesia to relieve constipation. MEDICATIONS: Please see Reconciliation Form for usual medications IF YOU HAVE ANY QUESTIONS OR PROBLEMS PLEASE FEEL FREE TO CALL THE OFFICE AT TO TALK WITH ONE OF OUR DOCTORS OR NURSES. OUR ANSWERING SERVICE IS AVAILABLE 24 HOURS/DAY.
== END 2019-09-20 19:55 | disposition home or self-care (01) ==
LOC: ED 09:42 → INTOOBSV 13:11 → SSU 13:11
PROVIDERS: ADMIT Surgery Surgical Critical Care; ATTEND Surgery Surgical Critical Care
PROC: 0FT44ZZ Resection of Gallbladder, Percutaneous Endoscopic Approach (ICD-10-PCS; principal; 2019-09-20 14:00)
DX: K80.00 Calculus of gallbladder with acute cholecystitis without obstruction (principal); Z88.8 Allergy status to other drugs, medicaments and biological substances; F17.210 Nicotine dependence, cigarettes, uncomplicated; Z79.899 Other long term (current) drug therapy
CPT/HCPCS: 36415; 76705; 80053; 83690; 84702; 85025; 88304; 96365; 96366; 96374; 96375; 96376; 99284; A9270-GY; G0378; J1100; J1240; J1885; J2250; J2270; J2405; J2543; J2704; J2710; J3010; J3490